=== PATIENT | female | born 1950 | race Caucasian/White ===

== ENCOUNTER 2020-02-24 16:47 | Observation (INO) | payer MEDICARE, SELFPAY ==
[2020-02-24] VITALS (9 sets, daily range): BP systolic 120–157; BP diastolic 75–97; PULSE 70–100; RESP 19–22; TEMP 36.7–37.2; O2SAT 92–98; BMI 25.0; BMI 24.8
--- NOTE | 2020-02-24 16:47 | ECG_ITS ---
APPROVED REPORT Exam: Resting ECG HR:100 bpm ECG Measurements Heart Rate 100 AXES WI 166 P 80 QRSd 140 QRS 263 QT 358 T 34 QTc 461 <Conclusion> Normal sinus rhythm Right bundle branch block Abnormal ECG Electronically signed by : Vinnie Chaidez, 02/25/2020 06:29:15
--- NOTE | 2020-02-24 17:13 | HMH.EDGENADL ---
ED Disposition Clinical Impression: Shortness of breath Chest pain Qualifiers: Chest pain type: precordial pain Qualified Code(s): R07.2 - Precordial pain Disposition: Admitted as Observation Condition on Discharge: Fair Referrals: Provider,Referral, [Primary Care Provider] - - Critical Care Critical Care Time: No Attestation: On , the high probability of a clinically significant, sudden or life threatening deterioration of the following system(s) required my full and direct attention, intervention and personal management. The time I documented below is in addition to time spent performing reported procedures but includes the following listed in this critical care notation. Medical Decision Making - Damián Inquiry Pt receiving controlled substance: No Vital Signs: 02/24/20 16:50 02/24/20 17:36 02/24/20 20:07 Temperature 99.0 F 98.2 F Temperature Source Oral Oral Pulse Rate 73 Pulse Rate [Right Radial] 100 H 83 Respiratory Rate 22 22 19 Blood Pressure 128/75 Blood Pressure [Right Arm] 157/89 H 146/82 H Blood Pressure Mean [Right Arm] 111 103 Blood Pressure Source Automatic Cuff Blood Pressure Source [Right Arm] Automatic Cuff Blood Pressure Position Sitting Blood Pressure Position [Right Arm] Sitting 02 Sat by Pulse Oximetry 95 98 Oxygen Delivery Method Room Air Nasal Cannula Room Air Oxygen Flow Rate (LPM) 2 - Lab Data Lab Results 02/24/20 16:50: WBC 7.3, RBC 5.04, Hgb 14.8, Hct 44.6, MCV 88.5, MCH 29.3, MCHC 33.1, RDW 13.5, Plt Count 246, MPV 7.9, Neut % (Auto) 46.8, Lymph % (Auto) 43.4, [place] % (Auto) 8.1, Eos % (Auto) 1.1, Baso % (Auto) 0.6, Neut # (Auto) 3.4, Lymph # (Auto) 3.2, [place] # (Auto) 0.6, Eos # (Auto) 0.1, Baso # (Auto) 0.0 02/24/20 16:50: Sodium 139, Potassium 4.2, Chloride 103, Carbon Dioxide 27, Anion Gap 13.2, BUN 18 H, Creatinine 0.70, Estimated Creat Clear 61, Estimated GFR 83, Est GFR ( Amer) 100, Glucose 100, Calcium 9.9, Total Bilirubin 0.6, AST 33, ALT 23, Alkaline Phosphatase 89, Troponin I < 0.01, Total Protein 7.8, Albumin 4.7, Globulin 3.1, Albumin/Globulin Ratio 1.5 02/24/20 16:50: D-Dimer 133 02/24/20 16:50: Influenza Type A Ag Negative, Influenza Type B Ag Negative 02/24/20 16:50: Group A Strep Rapid Negative 02/24/20 16:50: Lactate 1.5 02/24/20 17:11: ABG pH 7.44, ABG pCO2 32.8 L, ABG pO2 63.8 L, ABG HCO3 21.8 L, ABG Total CO2 22.8 L, ABG O2 Saturation 93, ABG Base Excess -2.4 Result diagrams: 02/24/20 16:50 02/24/20 16:50 Orders (Tests/Meds): ED MEDICATIONS Discontinued Medications Generic Name Dose Route Start Last Admin Trade Name Freq PRN Reason Stop Dose Admin Iohexol 70 ml 02/24/20 19:31 02/24/20 19:31 Rad-Omnipaque 350 100ml Bottle IV 02/24/20 19:32 70 ml ONCE ONE Administration Sodium Chloride 10 ml 02/24/20 19:31 02/24/20 19:31 Rad-Saline Flush 10ml Syringe IV 02/24/20 19:32 10 ml ONCE ONE Administration Sodium Chloride 50 ml 02/24/20 19:31 02/24/20 19:31 Rad-Ns 50ml Vial IV 02/24/20 19:32 50 ml ONCE ONE Administration ORDERS Category Date Time Status CTA Chest [CT angio chest] Stat Cat Scan 02/24/20 18:54 Taken Troponin I Q3H Lab 02/24/20 20:30 Ordered Troponin I Q3H Lab 02/24/20 23:30 Ordered Blood Culture Stat Micro 02/24/20 16:50 Received Strep Screen Confirmation Stat Micro 02/24/20 16:50 Received - Radiology Data #1 Image(s): Chest Image Reviewed: Yes I reviewed the patient's radiology image Preliminary Findings: Normal/NAD - CT Data CT Scan: Chest (CTA) Time Received: 20:08 ([facility] fax) ED CT Reviewed: Yes: I have viewed the radiologist's interpretation Findings Narrative: No CT evidence of central pulmonary embolism No CT evidence of overt pulmonary infarction No CT evidence of discernible right ventricular strain Mild ectasia of the ascending thoracic aorta which measures up to 3.5 cm in maximum diameter, there is no evidence of aortic dissec
[2020-02-24 17:14] LABS: ABG Base Excess -2.4 mmol/L (-2.4-2.3); ABG HCO3 21.8 mmhg (22.0-26.0); ABG Oxygen Saturation 93 % (90-100); ABG PCO2 32.8 mmhg (35.0-45.0); ABG PH 7.44 mmol/L (7.35-7.45); ABG PO2 63.8 mmhg (80-100); ABG TCO2 22.8 mmhg (23-27)
--- NOTE | 2020-02-24 17:22 | XR_ITS ---
PROCEDURE: XR CHEST PORTABLE CLINICAL HISTORY: soa, cp COMPARISON: No exams were available for comparison FINDINGS: Borderline cardiomegaly without failure. The lungs are clear without infiltrates, suspicious nodules, or pleural effusions. No acute bony abnormalities. IMPRESSION: Borderline cardiomegaly otherwise negative Dictated by: Cristian Mcdowell MD 02/24/2020 18:45 Electronically signed by Cristian Mcdowell MD in [place] 02/24/2020 18:45
[2020-02-24 17:25] LABS: Basophils % 0.6 % (0.1-2.0); Chloride 103 mmol/L (98-107); Eosinophils # 0.1 K/mm3 (0.0-0.4); Eosinophils % 1.1 % (0.1-12.0); Hematocrit 44.6 % (37.0-47.0); Hemoglobin 14.8 g/dL (12.2-16.2); Lymphocytes # 3.2 K/mm3 (0.7-4.5); Lymphocytes % 43.4 % (10-50); Mean Corpuscular HGB Conc 33.1 g/dL (31.8-35.4); Mean Corpuscular Hemoglobin 29.3 pg (27.0-31.2); Mean Corpuscular Volume 88.5 fl (81-99); Mean Platelet Volume 7.9 fl (7.4-10.4); Monocytes # 0.6 K/mm3 (0.1-1.0); Monocytes % 8.1 % (1.7-9.3); Neutrophils # 3.4 K/mm3 (1.8-7.8); Neutrophils % 46.8 % (37.0-80.0); Platelet Count 246 K/mm3 (142-424); Red Blood Count 5.04 M/mm3 (4.20-5.40); Red Cell Distribution Width 13.5 % (11.5-17.5); White Blood Count 7.3 K/mm3 (4.8-10.8)
[2020-02-24 17:26] LABS: Potassium 4.2 mmoL/L (3.5-5.1); Sodium 139 mmol/L (136-145)
[2020-02-24 17:28] LABS: Alanine Aminotransferase 23 U/L (12-78); Alkaline Phosphatase 89 U/L (38-126); Aspartate Amino Transferase 33 U/L (14-36); Bilirubin,Total 0.6 mg/dl (0.2-1.3); Blood Urea Nitrogen 18 mg/dl (7-17); Creatinine Clearance Estimated 61 mL/min (50-200); Estimated Glomerular Filt Rate 83 ml/min (>60); GFR (African American) 100 ML/MIN (>60)
[2020-02-24 17:29] LABS: Albumin Level 4.7 g/dl (3.5-5.0); Albumin/Globulin Ratio 1.5 (1.1-1.8); Anion Gap 13.2 mEq/L (5-15); Calcium 9.9 mg/dl (8.4-10.2); Carbon Dioxide 27 mmol/L (22.0-30.0); Globulin 3.1 g/dL (1.3-3.2); Glucose 100 mg/dl (74-100); Total Protein,Serum 7.8 g/dl (6.3-8.2)
[2020-02-24 17:36] LABS: Strep Scrn Group A (Rapid) Negative (Negative)
[2020-02-24 17:42] LABS: Troponin I < 0.01 ng/ml (0.00-0.034)
[2020-02-24 17:59] LABS: Lactic Acid 1.5 mmol/L (0.7-2.1)
[2020-02-24 18:14] LABS: D-Dimer 133 ng/mL (0-400)
--- NOTE | 2020-02-24 18:54 | CT_ITS ---
PROCEDURE: CT ANGIO CHEST CLINCIAL INDICATION: cp, soa Chest pain, shortness of air, elevated D-dimer, fatigue COMPARISON: XR CHEST PORTABLE from 02/24/2020 TECHNIQUE: IV Contrast: 70ML OPTIRAY 350 Axial images obtained with sagittal and coronal reformats. All CT scans at the facility use one or more dose reduction, viz: automated exposure control, ma/kV adjustment per patient size (including targeted exams where dose is matched to indication, i.e. head), or iterative reconstruction technique. FINDINGS: HEART AND MEDIASTINAL STRUCTURES: No evidence of aortic aneurysm, dissection, or pulmonary embolus. There is mild ectasia of the ascending aorta measuring up to 3.5 cm LUNGS AND PLEURAL SPACES: There is mild biapical pleural thickening BONY STRUCTURES: No acute bony abnormalities apparent. UPPER ABDOMEN: 6 mm hypodensity right hepatic lobe nonspecific too small to categorize. Prior cholecystectomy. Small amount of gas is present in the esophagus which could be seen with reflux ADDITIONAL FINDINGS: No other significant abnormalities. IMPRESSION: No acute finding. No evidence of pulmonary embolus. Dictated by: Cristian Mcdowell MD 02/25/2020 06:51 Electronically signed by Cristian Mcdowell MD in [place] 02/25/2020 06:51
--- NOTE | 2020-02-24 18:55 | PC.NURSE ---
NOTIFIED RAD OF CT PE PROTOCOL
--- NOTE | 2020-02-24 20:25 | PC.NURSE ---
md spoke with patient re: second troponin. willing to have it drawn and wait on it.
--- NOTE | 2020-02-24 20:30 | PC.NURSE ---
paged doc center consultant for service
--- NOTE | 2020-02-24 20:32 | PC.NURSE ---
speaking to dr weiss who is fundraising consultant for service
--- NOTE | 2020-02-24 20:34 | PC.NURSE ---
md on phone with dr ureña (covering for dr weiss).
--- NOTE | 2020-02-24 20:42 | PC.NURSE ---
spoke with reagan for admission. Radamesson-Dm chest pain obs 214
--- NOTE | 2020-02-24 21:12 | PC.NURSE ---
ED Report given by Jaiden YoungRN @ 9799: ER via Ambulance at 1700. Pt c/o chest pain thru back and out to ear, got concerned when b/c soa, called ambulance. Pt sating ok, c/o soa with intermittent dry cough. Troponin #1 - negative Elites - OK Ddimes - negative ABG - ok nothing critical A&Ox4 from home, lives with puppy Alergies - Paroxeting, fluoxetine Full code C/p & soa work up with CTA chest Flu/stret - negative Lactate - normal blood cultures 120/85 98.2 70's Resp fine ASA - 324mg given Pt can come via w/c to floor - no oxygen required. Alerted staff pt is ready to come to med/surg.
--- NOTE | 2020-02-24 21:24 | PC.NURSE ---
med surg staff here to transport patient to the floor
--- NOTE | 2020-02-24 21:28 | PC.NURSE ---
pt arrived to floor via wheelchair from ED
[2020-02-24 22:09] LABS: Troponin I < 0.01 ng/ml (0.00-0.034)
[2020-02-25] VITALS: BP 157/84; PULSE 67; RESP 16; TEMP 36.7; O2SAT 95
[2020-02-25] LABS: Troponin I < 0.01 ng/ml (0.00-0.034)
[2020-02-25 04:00] VITALS: BP 153/80; PULSE 71; PULSE 80; RESP 16; TEMP 36.7; O2SAT 96
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
[2020-02-25 05:38] VITALS: BMI 25.1
--- NOTE | 2020-02-25 07:32 | HMH.PHAVTE ---
[facility] Pharmacy VTE Monitoring - Patient Demographics Admission date: 02/25/20 Report Date: 02/25/20 Time: 07:32 Allergies/Adverse Reactions: Patient Allergies fluoxetine [From Prozac] Allergy (Verified 02/24/20 17:18) paroxetine [From Paxil] Allergy (Verified 02/24/20 17:18) Height: 1.7 m Weight: 72.631 kg Patient Problems: Current Active Problems Chest pain (Acute) Shortness of breath (Acute) - VTE Risk Labs: VTE Related Lab Results Hgb 14.8 g/dL (12.2-16.2) 02/24/20 16:50 Hct 44.6 % (37.0-47.0) 02/24/20 16:50 Plt Count 246 K/mm3 (142-424) 02/24/20 16:50 BUN 18 mg/dl (7-17) H 02/24/20 16:50 Creatinine 0.70 mg/dl (0.52-1.04) 02/24/20 16:50 Estimated Creat Clear 61 mL/min (50-200) 02/24/20 16:50 Was VTE Risk Assessment Performed: Yes VTE Score: 2 VTE Risk Level: Very Low Risk Clinical Trial Participant: No - Prophylaxis VTE Prophylaxis Ordered?: Yes Types of VTE Prophylaxis: TEDS Knee High
--- NOTE | 2020-02-25 07:38 | HMH.PHAINT ---
clarified home medication list using list from [facility]
[2020-02-25 08:00] VITALS: BP 137/68; PULSE 100; PULSE 91; RESP 16; TEMP 36.9; O2SAT 95
--- NOTE | 2020-02-25 08:29 | HMH.HP ---
*Admission Date: 02/25/20 *Chief complaint: Chest pressure and shortness of air *History of present illness: 69-year-old white female with history of hypertension and hyperlipidemia who has had several episodes of chest pain and shortness of air in the past, and states that she is had 3 stress test that have I failed -which resulted in her undergoing left heart cath about 10 years ago that per her report was clean. She is felt well since that time but over the past 24 hours has had increasing shortness of air with chest pressure. She has moved from the [facility] to [place] to live with her daughter after she and her are and her daughter persuaded her to come to the emergency department last night. Given her age, symptom characteristics and risk factors she was admitted to the hospital for rule out [place]. [facility] History I have reviewed the patient's past medical history: Yes Medical History: Reports:: Hyperlipidemia, Hypertension Denies:: Cancer, Diabetes Mellitus Type 1, Diabetes Mellitus Type 2, MRSA *Have you ever received a pneumonia vaccine?: Yes *Have you received a flu vaccine this season?: Yes Other Medical History: Reports: Sinus Problems Other Surgeries: Yes: Appendectomy, Cholecystectomy, Hysterectomy-Total Amputation: No Fractures: Yes (Right arm fx years ago) - *Social History Educational Level: Attended High School Smoking Status: Never smoker Alcohol Intake: never *Occupational Status:: retired *Travel in the last 8 weeks: None Family Hx:: Cancer, Coronary Artery Disease, Diabetes, Heart Attack, Hyperlipidemia, Hypertension, Stroke, Tuberculosis, Substance abuse, Alcoholism Review of Systems - Review of Systems Review of systems:: pertinent systems reviewed and negative unless documented below Med Home Medications Medication Instructions Recorded Confirmed Type Aspirin 325mg Tab 325 mg PO HS 02/24/20 02/25/20 History LORazepam [Lorazepam 1mg Tablet] 1 mg PO BID 02/24/20 02/24/20 History Omeprazole [Omeprazole 20mg 20 mg PO HS 02/24/20 02/25/20 History Capsule] Simvastatin [Zocor] 40 mg PO HS 02/24/20 02/25/20 History Duloxetine HCl 60 mg PO HS 02/25/20 02/25/20 History Quetiapine Fumarate 100 mg PO HS 02/25/20 02/25/20 History lisinopriL [Lisinopril 10mg Tab] 10 mg PO HS 02/25/20 02/25/20 History Allergies Allergy/AdvReac Type Severity Reaction Status Date / Time fluoxetine [From Prozac] Allergy Verified 02/24/20 17:18 paroxetine [From Paxil] Allergy Verified 02/24/20 17:18 Exam Vital signs and Labs for Last 24 Hours: Temp Pulse Resp BP Pulse Ox 98.0 F 71 16 153/80 H 96 02/25/20 04:00 02/25/20 04:00 02/25/20 04:00 02/25/20 04:00 02/25/20 04:00 Laboratory Results - last 24 hr 02/24/20 16:50: WBC 7.3, RBC 5.04, Hgb 14.8, Hct 44.6, MCV 88.5, MCH 29.3, MCHC 33.1, RDW 13.5, Plt Count 246, MPV 7.9, Neut % (Auto) 46.8, Lymph % (Auto) 43.4, [place] % (Auto) 8.1, Eos % (Auto) 1.1, Baso % (Auto) 0.6, Neut # (Auto) 3.4, Lymph # (Auto) 3.2, [place] # (Auto) 0.6, Eos # (Auto) 0.1, Baso # (Auto) 0.0 02/24/20 16:50: Sodium 139, Potassium 4.2, Chloride 103, Carbon Dioxide 27, Anion Gap 13.2, BUN 18 H, Creatinine 0.70, Estimated Creat Clear 61, Estimated GFR 83, Est GFR ( Amer) 100, Glucose 100, Calcium 9.9, Total Bilirubin 0.6, AST 33, ALT 23, Alkaline Phosphatase 89, Troponin I < 0.01, Total Protein 7.8, Albumin 4.7, Globulin 3.1, Albumin/Globulin Ratio 1.5 02/24/20 16:50: D-Dimer 133 02/24/20 16:50: Influenza Type A Ag Negative, Influenza Type B Ag Negative 02/24/20 16:50: Group A Strep Rapid Negative 02/24/20 16:50: Lactate 1.5 02/24/20 17:11: ABG pH 7.44, ABG pCO2 32.8 L, ABG pO2 63.8 L, ABG HCO3 21.8 L, ABG Total CO2 22.8 L, ABG O2 Saturation 93, ABG Base Excess -2.4 02/24/20 20:46: Troponin I < 0.01 02/24/20 23:25: Troponin I < 0.01 I & O for Last 24 hours: Intake & Output 02/22/20 02/23/20 02/24/20 02/25/20 11:59 11:59 11:59 11:59 Intake
--- NOTE | 2020-02-25 08:45 | HMH.CNCARD ---
History of Present Illness Consult date: 02/25/20 Requesting physician: Vinnie Chaidez Consult reason: chest pain, shortness of breath Chief complaint: sob Additional Medical History:: 1. htn 2. hld History of present illness: This is a 69-year-old white female who was admitted to the hospital with chest pain. She states for the last 3 days she had not felt well but woke up yesterday morning with shortness of breath. She states that her shortness of breath was pretty severe. She states that this was associated with a fullness in her chest especially in the right aspect. She states this radiated through to her back. She states that the chest fullness and shortness of breath did get severe and persisted all day long until she came to the hospital yesterday evening and was put on oxygen. She states once she had the oxygen in place her symptoms did improve. She denies any nausea. She did have some diaphoresis in her hands. The patient states nothing made her symptoms worse and nothing at home was helping make the symptoms better and that is why she decided to come into the hospital. She has recently moved here from [facility]. The patient reports that she has had 3 stress test in the past and she did have a cardiac catheterization approximately 10 years ago which was normal. She states that her most recent stress test was normal but she does not remember when that was. She denies any fever, chills, nausea, vomiting, diarrhea, PND, orthopnea or cough. [facility] History I have reviewed the patient's past medical history: Yes Medical History: Reports:: Hyperlipidemia, Hypertension Denies:: Cancer, Diabetes Mellitus Type 1, Diabetes Mellitus Type 2, MRSA *Have you ever received a pneumonia vaccine?: Yes *Have you received a flu vaccine this season?: Yes Other Medical History: Reports: Sinus Problems Other Surgeries: Yes: Appendectomy, Cholecystectomy, Hysterectomy-Total Amputation: No Fractures: Yes (Right arm fx years ago) - *Social History Educational Level: Attended High School Smoking Status: Never smoker Alcohol Intake: never *Occupational Status:: retired *Travel in the last 8 weeks: None Family Hx:: Cancer, Coronary Artery Disease, Diabetes, Heart Attack, Hyperlipidemia, Hypertension, Stroke, Tuberculosis, Substance abuse, Alcoholism Meds Home Medications Medication Instructions Recorded Confirmed Type Aspirin 325mg Tab 325 mg PO HS 02/24/20 02/25/20 History LORazepam [Lorazepam 1mg Tablet] 1 mg PO BID 02/24/20 02/24/20 History Omeprazole [Omeprazole 20mg 20 mg PO HS 02/24/20 02/25/20 History Capsule] Simvastatin [Zocor] 40 mg PO HS 02/24/20 02/25/20 History Duloxetine HCl 60 mg PO HS 02/25/20 02/25/20 History Quetiapine Fumarate 100 mg PO HS 02/25/20 02/25/20 History lisinopriL [Lisinopril 10mg Tab] 10 mg PO HS 02/25/20 02/25/20 History Allergies Allergy/AdvReac Type Severity Reaction Status Date / Time fluoxetine [From Prozac] Allergy Verified 02/24/20 17:18 paroxetine [From Paxil] Allergy Verified 02/24/20 17:18 Review of Systems - Review of Systems Review of systems:: pertinent systems reviewed and negative unless documented below - *Cardiovascular Reports chest pain, Reports chest pain at rest, Reports chest pain with activity, Reports excessive sweating, Reports shortness of breath, Reports shortness of breath with activity - *Respiratory Reports shortness of breath, Reports shortness of breath with activity Exam Vital signs and Labs for Last 24 Hours: Temp Pulse Resp BP Pulse Ox 98.4 F 91 H 16 137/68 95 02/25/20 08:00 02/25/20 08:00 02/25/20 08:00 02/25/20 08:00 02/25/20 08:00 Laboratory Results - last 24 hr 02/24/20 16:50: WBC 7.3, RBC 5.04, Hgb 14.8, Hct 44.6, MCV 88.5, MCH 29.3, MCHC 33.1, RDW 13.5, Plt Count 246, MPV 7.9, Neut % (Auto) 46.8, Lymph % (Auto) 43.4, [place] % (Auto) 8.1, Eos % (Auto) 1.1, Baso % (Auto) 0.6, Neut # (Auto) 3.4, Lymph # (Auto) 3.2,
--- NOTE | 2020-02-25 08:46 | NM_ITS ---
APPROVED REPORT Exam: Nuclear Stress Test Indication: hypertension, hyperlipidemia, fm. hx., c.p., matti, torie Patient Location: Inpatient Stress Tech: Lianet Giles [place] Tech:Nicole Bourgeois, ARRT, RT (R)(N) Ht: 5 ft 7 in Wt: 160 lbs Bra Size: 36c HR: 81 bpm BP: 124/81 mmHg BSA: 1.84 m2 BMI: 25.0 History: hypertension, hyperlipidemia, fm. hx., c.p., matti, torie Procedure: Patient received a 0.4 mg of intravenous Lexiscan, resting heart rate 81 bpm, resting blood pressure 124/81 mmHg, with Lexiscan maximum heart rate achived was 125 bpm which is Less than 85 % of the maximum predicted heart rate and blood pressure was 131/68 mmHg. Electrocardiogram Resting electrocardiogram showed sinus rhythm right bundle branch block, nonspecific ST-T changes, with Lexiscan there is less than 1.[address] segment depression noted from the baseline EKG. The EKG portion of the Lexiscan Myoview is nondiagnostic. Cardiac Stress and Resting SPECT Images: Cardiac Stress and Resting SPECT images were obtained using technetium 99m Myoview 31.8 mCi stress and 10.74 mCi at rest. Gated SPECT for the analysis of segmental wall motion and calculation of the ejection fraction also done. Cardiac stress and resting SPECT images show a mild fixed defect in the anterior wall with normal contractility gated SPECT is likely secondary to soft tissue attenuation, no reversible ischemia seen. Computer derived ejection fraction is over 65% with no regional wall motion abnormality, right ventricle is mildly enlarged with normal contractility. Conclusion: 1. The EKG portion of the Lexiscan Myoview is nondiagnostic. 2. No scintigraphic evidence of reversible ischemia seen, computer derived ejection fraction is over 65% with no regional wall motion abnormality, right ventricle is mildly enlarged with normal contractility. 3. Likely normal Lexiscan Myoview study. Electronically signed by : Evgeny Cancino, 02/25/2020 15:03:49
--- NOTE | 2020-02-25 08:46 | CA_ITS ---
APPROVED REPORT Exam: Pharmacologic Technologist: Dana Wilson, Ht: 67 ft 0 in Wt: 160 lbs BSA: 11.15 m2 HR: 81 bpm BP: 124/81 mmHg Rhythm: SINUS RHYTHM/LBBB Medical History Medical History: HTN, Hyperlipidemia Medications: Lisinopril,,,,, Omeprazole,,,,, Simvastatin,,,,, Asa,,,,, Asa,,,,, DulOXETINE,,,,, LorEZEPAM,,,,, Quetiapine,,,,, Cardiac Risk Factors: HTN, Hyperlipidemia, FHX of CAD Stress Test Details Test: LEXISCAN HR Resting HR: 93 bpm Max Heart Rate (APMHR): 151 bpm Max HR Achieved: 126 bpm Target HR (85% APMHR): 128 bpm % of APMHR: 83 Recovery HR: 108 bpm BP Resting BP: 124/81 mmHg Max BP: 143/72 mmHg Recovery BP: 143.0/72.0 mmHg ECG Resting ECG: SINUS RHYTHM/LBBB Clinical Exercise duration: 04:07 min Highest Stage Achieved: Exercise capacity: 1.0 METs Stress ECG Conclusion LEXISCAN PROTOCOL COMPLETED. PATIENT C/O HEADACHE DURING INFUSION. NO CHEST PAIN. NO SOA. POSITIVE FOR HEADACHE DURING INFUSION. RESOLVED IN RECOVERY. NO ECTOPY NOTED. GREATER THAN 1.[address] DEPRESSION. IMAGES TO FOLLOW. Test Summary REST . . . . . . . Sitting REST 07:28 . . 93 . 124/ 81 . . Stage 1 01:00 . . 118 . . . . Stage 2 01:00 . . 125 . 131/ 68 . . Stage 3 01:00 . . 120 . 130/ 77 . . Stage 4 01:00 . . 112 . 133/ 80 . . Stage 4 01:07 . . 111 . 126/ 76 . Stop exercise at 04:07 RECOVERY 01:00 . . 106 . . . . RECOVERY 02:00 . . 103 . 143/ 72 . . RECOVERY 03:00 . . 104 . 141/ 70 . . RECOVERY 04:00 . . 102 . 127/ 74 . . RECOVERY 04:16 . . 101 . 127/ 74 . . Electronically signed by : Evgeny Cancino, 02/25/2020 14:59:17
--- NOTE | 2020-02-25 08:51 | CA_ITS ---
APPROVED REPORT EXAM: Comprehensive 2D, Doppler, and color-flow Echocardiogram Accounting Office Manager: Jody Siddiqui CRT Ht: 5 ft 6 in Wt: 160lbs BSA: 1.82 BP: 137/68 mmHg Indications: Chest Pain, Shortness of Breath, Hyperlipidemia, Hypertension/HDD, abn ekg M-Mode Dimensions RVDd 2.66 cm (0.9-2.6) LVDd 4.13 cm (3.5-5.7) LVDs 3.04 cm (3.5-5.7) IVSd 1.79 cm (0.6-1.1) PWd 1.16 cm (0.6-1.1) EF (Teich) 52.10% FS 26.40% EDV (Teich) 75.50 mL ESV (Teich) 36.20 mL LV Diastology E/A Ratio 0.40 Mitral Valve MV A Velocity 92.00 (40-130 cm/s) Left Ventricle Left atrium is mildly enlarged, left ventricle is normal size, mild concentric left ventricular hypertrophy, visually estimated ejection fraction 55% with no regional wall motion abnormality, grade 1 diastolic dysfunction seen without tissue Doppler evidence of raise left atrial pressure. Right Ventricle Right atrium right ventricular normal size and contractility. Aortic Valve Aortic valve is minimally thickened and fibrosed, there is no aortic stenosis or aortic insufficiency. Mitral Valve Mitral valve is grossly normal, there is mild mitral regurgitation. Tricuspid Valve Tricuspid valve is grossly normal, there is mild tricuspid regurgitation. Pulmonic Valve Pulmonic valve is poorly visualized. Great Vessels Aortic root is normal size. Pericardium No significant pericardial effusion noted. Conclusion 1. Mildly enlarged left atrium, normal left ventricular size, mild concentric left ventricular hypertrophy, visually estimated ejection fraction 55% with no regional wall motion abnormality, grade 1 diastolic dysfunction seen without tissue Doppler evidence of raise left atrial pressure. 2. Mild mitral and tricuspid regurgitation. 3. No significant pericardial effusion noted. Electronically signed by : Evgeny Cancino, 02/25/2020 15:07:26
--- NOTE | 2020-02-25 10:15 | PC.NURSE ---
PATIENT WENT DOWN FOR ECHO AT 0915. FROM ECHO PATIENT WILL HAVE STRESS TEST DONE.
[2020-02-25 12:07] VITALS: PULSE 80
--- NOTE | 2020-02-25 12:17 | PC.NURSE ---
patient back to floor at this time
[2020-02-25 12:44] VITALS: BP 129/76; PULSE 86; RESP 16; TEMP 36.7; O2SAT 94
[2020-02-25 13:18] LABS: Chol/HDL Ratio 4.6 (1-3.5); Cholesterol 180 mg/dl (140-200); HDL Cholesterol 39 mg/dl (40-60); Triglycerides 326 mg/dl (30-150); VLDL Cholesterol 65 mg/dL (0-40)
[2020-02-25 13:29] LABS: Direct LDL Cholesterol 103.37 mg/dL (100-129)
[2020-02-25 16:00] VITALS: BP 128/82; PULSE 80; PULSE 85; RESP 16; TEMP 36.7; O2SAT 96
--- NOTE | 2020-02-25 16:02 | HMH.DCSUM ---
General - General Admission date:: 02/24/20 Discharge date: 02/25/20 HPI HPI: 69-year-old white female with history of hypertension and hyperlipidemia who has had several episodes of chest pain and shortness of air in the past, and states that she is had 3 stress test that have I failed -which resulted in her undergoing left heart cath about 10 years ago that per her report was clean. She is felt well since that time but over the past 24 hours has had increasing shortness of air with chest pressure. She has moved from the [facility] to [place] to live with her daughter after she and her are and her daughter persuaded her to come to the emergency department last night. Given her age, symptom characteristics and risk factors she was admitted to the hospital for rule out HI. Hospital Course Hospital Course: Patient was admitted, ruled out for HI, no further chest pain, echocardiogram and Myoview stress testing were unremarkable. On further discussion she has had a little bit of heartburn and we will treat her with omeprazole on discharge. She will be discharged home. I will follow her up in my office as a new patient. Objective Vital signs: Temp Pulse Resp BP Pulse Ox 98.0 F 86 16 129/76 94 L 02/25/20 12:44 02/25/20 12:44 02/25/20 12:44 02/25/20 12:44 02/25/20 12:44 no acute distress - *Routine HEENT Exam Head: Present: normocephalic Eye: Present: EOMI, PERRL ENT: Present: mucous membranes moist - *Routine Neck Exam Present: supple - *Routine Respiratory Exam Present: CTA bilaterally - *Routine Cardiovascular Exam Present: RRR - *Routine Abdominal Exam Present: soft, normoactive bowel sounds. Absent: tenderness - *Routine Extremities Exam Absent: cyanosis, clubbing, edema - *Routine Skin Exam Present: warm. Absent: rash - Detailed Eye Exam Eyelids: Bilateral normal inspection Results Labs on day of discharge: Labs from last 24 hours 02/25/20 02/24/20 02/24/20 12:40 23:25 20:46 WBC RBC Hgb Hct MCV MCH MCHC RDW Plt Count MPV Neut % (Auto) Lymph % (Auto) [place] % (Auto) Eos % (Auto) Baso % (Auto) Neut # (Auto) Lymph # (Auto) [place] # (Auto) Eos # (Auto) Baso # (Auto) D-Dimer ABG pH ABG pCO2 ABG pO2 ABG HCO3 ABG Total CO2 ABG O2 Saturation ABG Base Excess Sodium Potassium Chloride Carbon Dioxide Anion Gap BUN Creatinine Estimated Creat Clear Estimated GFR Est GFR ( Amer) Glucose Lactate Calcium Total Bilirubin AST ALT Alkaline Phosphatase Troponin I < 0.01 < 0.01 Total Protein Albumin Globulin Albumin/Globulin Ratio Triglycerides 326 H Cholesterol 180 LDL Cholesterol Direct 103.37 VLDL Cholesterol 65 H HDL Cholesterol 39 L Cholesterol/HDL Ratio 4.6 H Influenza Type A Ag Influenza Type B Ag Group A Strep Rapid 02/24/20 02/24/20 02/24/20 17:11 16:50 16:50 WBC RBC Hgb Hct MCV MCH MCHC RDW Plt Count MPV Neut % (Auto) Lymph % (Auto) [place] % (Auto) Eos % (Auto) Baso % (Auto) Neut # (Auto) Lymph # (Auto) [place] # (Auto) Eos # (Auto) Baso # (Auto) D-Dimer ABG pH 7.44 ABG pCO2 32.8 L ABG pO2 63.8 L ABG HCO3 21.8 L ABG Total CO2 22.8 L ABG O2 Saturation 93 ABG Base Excess -2.4 Sodium Potassium Chloride Carbon Dioxide Anion Gap BUN Creatinine Estimated Creat Clear Estimated GFR Est GFR ( Amer) Glucose Lactate 1.5 Calcium Total Bilirubin AST ALT Alkaline Phosphatase Troponin I Total Protein Albumin Globulin Albumin/Globulin Ratio Triglycerides Cholesterol LDL Cholesterol Direct VLDL Cholesterol HDL Cholesterol Cholesterol/H
--- NOTE | 2020-02-25 16:10 | HMH.PHAINT ---
DISCHARGE COUNSELING COMPLETE. SPOKE WITH PATIENT ABOUT DISCHARGE MEDICATIONS AND THAT NOTHING WAS CHANGED. LET PATIENT KNOW ABOUT THE SCRIPT FOR OMEPRAZOLE SENT TO [facility]. PATIENT ENDORSED NO QUESTIONS AT THIS TIME.
== END 2020-02-25 16:40 | disposition home or self-care (01) ==
LOC: ER 17:18 → 2ND 20:45
PROVIDERS: Nurse Practitioner Family; Admitting Provider Internal Medicine Adolescent Medicine; Emergency Provider Emergency Medicine; Visit Provider Internal Medicine Adolescent Medicine
DX: R07.2 Precordial pain (principal); R06.02 Shortness of breath; E78.5 Hyperlipidemia, unspecified; I10 Essential (primary) hypertension; R94.31 Abnormal electrocardiogram [ECG] [EKG]; Z79.899 Other long term (current) drug therapy; Z88.8 Allergy status to other drugs, medicaments and biological substances; H92.01 Otalgia, right ear; Z82.49 Family history of ischemic heart disease and other diseases of the circulatory system; Z83.6 Family history of other diseases of the respiratory system; Z83.3 Family history of diabetes mellitus; Z82.3 Family history of stroke; Z83.438 Family history of other disorder of lipoprotein metabolism and other lipidemia; Z90.49 Acquired absence of other specified parts of digestive tract; Z90.710 Acquired absence of both cervix and uterus; Z80.9 Family history of malignant neoplasm, unspecified
CPT/HCPCS: 36415; 71045; 71275; 78452; 80053; 80061; 82803; 83605; 84484; 85025; 85378; 87040; 87275; 87276; 87430; 93005; 93017; 93306; 96374; 96375; 99285; A9502; G0378; J2785; Q9967

== ENCOUNTER → 2021-02-21 10:42 | Outpatient (CLI) | payer MEDICARE, SELFPAY ==
[2021-02-21 12:20] LABS: Coronavirus 19 IgG Antibody Negative (Negative); Coronavirus 19 IgM Antibody Negative (Negative)
== END ==
PROVIDERS: Visit Provider Ophthalmology
DX: Z01.812 Encounter for preprocedural laboratory examination (principal); Z11.52 Encounter for screening for COVID-19; H25.12 Age-related nuclear cataract, left eye
CPT/HCPCS: 36415; 86328

== ENCOUNTER 2021-02-22 07:19 | Day surgery (SDC) | payer MEDICARE, SELFPAY ==
[2021-02-15 14:22] VITALS: BMI 27.6
[2021-02-22 07:48] VITALS: BP 131/82; PULSE 85; RESP 18; TEMP 36.2; O2SAT 95
[2021-02-22 09:15] VITALS: BP 149/79; PULSE 74; RESP 16; O2SAT 98
[2021-02-22 09:20] VITALS: BP 143/82; PULSE 74; RESP 16; O2SAT 97
[2021-02-22 09:25] VITALS: BP 147/85; PULSE 73; RESP 16; O2SAT 99
[2021-02-22 09:28] VITALS: BP 148/85; PULSE 77; RESP 16; O2SAT 99
[2021-02-22 09:32] VITALS: BP 159/83; PULSE 80; RESP 20; TEMP 36.8; O2SAT 95
== END 2021-02-22 09:46 | disposition home or self-care (01) ==
PROVIDERS: PCP Family Medicine; Visit Provider Ophthalmology
DX: H26.9 Unspecified cataract (principal); F32.9 Major depressive disorder, single episode, unspecified; I10 Essential (primary) hypertension; E78.5 Hyperlipidemia, unspecified; H91.90 Unspecified hearing loss, unspecified ear; Z90.49 Acquired absence of other specified parts of digestive tract; Z90.710 Acquired absence of both cervix and uterus; Z79.899 Other long term (current) drug therapy; Z88.8 Allergy status to other drugs, medicaments and biological substances
CPT/HCPCS: 66984; V2632

== ENCOUNTER 2021-03-08 07:10 | Day surgery (SDC) | payer MEDICARE, SELFPAY ==
[2021-03-03 11:56] VITALS: BMI 27.3
[2021-03-08] VITALS (7 sets, daily range): BP systolic 128–137; BP diastolic 71–82; PULSE 80–95; RESP 16–18; TEMP 36.6; O2SAT 95–99
[2021-03-08 08:54] LABS: Coronavirus 19 IgG Antibody Negative (Negative); Coronavirus 19 IgM Antibody Negative (Negative)
== END 2021-03-08 09:33 | disposition home or self-care (01) ==
PROVIDERS: PCP Family Medicine; Visit Provider Ophthalmology
DX: H26.9 Unspecified cataract (principal); F32.9 Major depressive disorder, single episode, unspecified; I10 Essential (primary) hypertension; E78.5 Hyperlipidemia, unspecified; H91.90 Unspecified hearing loss, unspecified ear; Z86.73 Personal history of transient ischemic attack (TIA), and cerebral infarction without residual deficits
CPT/HCPCS: 66984; 86328; V2632

== ENCOUNTER → 2021-10-26 10:39 | Outpatient (CLI) | payer MEDICARE, SELFPAY | PROVIDERS: Visit Provider Nurse Practitioner | DX: Z20.822 Contact with and (suspected) exposure to COVID-19 (principal) | CPT/HCPCS: C9803; U0003; U0005 ==

== ENCOUNTER 2021-10-28 10:58 | Emergency (ER) | payer MEDICARE, SELFPAY ==
[2021-10-28 11:30] VITALS: BP 138/79; PULSE 90; RESP 20; TEMP 36.6; O2SAT 95; BMI 26.6
--- NOTE | 2021-10-28 12:03 | HMH.EDUTC ---
[facility] Disposition Clinical Impression: Acute bronchitis Qualifiers: Bronchitis organism: unspecified organism Qualified Code(s): J20.9 - Acute bronchitis, unspecified Sinusitis Qualifiers: Sinusitis location: unspecified location Chronicity: acute Recurrence: non-recurrent Qualified Code(s): J01.90 - Acute sinusitis, unspecified Disposition: Home, Self-Care Condition on Discharge: Good Instructions: DI for Sinusitis, DI for Acute Bronchitis Additional Instructions: Drink plenty of fluids. Take tylenol or ibuprofen for pain or fever. Take the medications as directed. Follow up with your regular doctor. GO TO THE ER FOR ANY WORSENING SYMPTOMS Prescriptions: Benzonatate [Benzonatate 100mg cap] 100 mg PO TIDP PRN #30 cap PRN Reason: Cough Transmission Status: Pending to [facility] guaiFENesin [Mucinex 600mg tablet] 1 - 2 tab PO BIDP PRN #30 tab PRN Reason: Congestion Transmission Status: Pending to [facility] predniSONE [Prednisone 20mg Tab] 20 mg PO BID 3 Days #6 tab Transmission Status: Pending to [facility] Azithromycin [Z-Donaldo 250mg Tab*] 250 mg PO UD DOSE PK #6 tab Transmission Status: Pending to [facility] Referrals: Gina Dyson MD [Primary Care Provider] - Time of Disposition: 12:36 Medical Decision Making - Medical Records Medical records reviewed: No: I reviewed the patient's medical records. - Damián Inquiry Pt receiving controlled substance: No Vital Signs: 10/28/21 11:30 Temperature 97.9 F Temperature Source Oral Pulse Rate [Right] 90 Respiratory Rate 20 Blood Pressure [Right Arm] 138/79 Blood Pressure Mean [Right Arm] 98 Blood Pressure Source [Right Arm] Automatic Cuff Blood Pressure Position [Right Arm] Sitting 02 Sat by Pulse Oximetry 95 Oxygen Delivery Method Room Air - Lab Data Lab results reviewed: Yes: I reviewed the patient's lab results. [facility] HPI - General Stated complaint: covid symptoms Time Seen by Provider: 10/28/21 12:03 - History of Present Illness Provider Complaint: She states that for the past 6 days she has had a cough, chest congestion and sinus congestion. She tested negative for covid-19 3 days ago here at this hospital. - Related Data Home Medications Medication Instructions Recorded Confirmed Aspirin 325mg Tab 325 mg PO HS 02/24/20 03/08/21 Simvastatin [Zocor 40mg] 40 mg PO HS 02/24/20 03/08/21 Duloxetine HCl 60 mg PO BID 02/25/20 03/08/21 Budesonide/Formoterol Fumarate 2 puffs IH BID 02/15/21 03/08/21 [Symbicort 160-4.5 Mcg Inhaler] lisinopriL [Lisinopril] 10 mg PO BID 02/22/21 03/08/21 Cholecalciferol (Vitamin D3) 2,000 unit PO DAILY 03/08/21 03/08/21 [Vitamin D3 1,000 Unit Cap] Multivitamin 1 each PO DAILY 03/08/21 03/08/21 Omeprazole [Omeprazole 20mg 20 mg PO BID 03/08/21 03/08/21 Capsule] clonazePAM [Clonazepam] 0.5 mg PO BID 03/08/21 03/08/21 Previous Rx's Medication Instructions Recorded Azithromycin [Z-Donaldo 250mg Tab*] 250 mg PO UD DOSE PK #6 tab 10/28/21 Benzonatate [Benzonatate 100mg 100 mg PO TIDP PRN #30 cap 10/28/21 cap] guaiFENesin [Mucinex 600mg tablet] 1 - 2 tab PO BIDP PRN #30 tab 10/28/21 predniSONE [Prednisone 20mg 20 mg PO BID 3 Days #6 tab 10/28/21 Tab] Allergies Allergy/AdvReac Type Severity Reaction Status Date / Time fluoxetine [From Prozac] Allergy Verified 03/08/21 08:00 paroxetine [From Paxil] Allergy Verified 03/08/21 08:00 [facility] History - Hepatitis A Screen Attestation statement:: This patient has been screened for Hepatitis A risk factors. I have reviewed the patient's past medical history: Yes Medical History: Reports:: Cancer, Hyperlipidemia, Hypertension Denies:: Diabetes Mellitus Type 1, Diabetes Mellitus Type 2, Internal Pacemaker, MRSA, Seizures Other Medical History: Reports: Sinus Problems Other Surgeries: Yes: Appendectomy, Cholecystectomy, Hysterectomy-Total. No: Jona
[2021-10-28 12:37] VITALS: BP 138/79; PULSE 90; RESP 20; TEMP 36.6; O2SAT 95
== END 2021-10-28 12:40 | disposition home or self-care (01) ==
PROVIDERS: Emergency Provider Nurse Practitioner Family; PCP Family Medicine
DX: J20.9 Acute bronchitis, unspecified (principal); J01.90 Acute sinusitis, unspecified; I10 Essential (primary) hypertension; E78.5 Hyperlipidemia, unspecified; Z79.899 Other long term (current) drug therapy
CPT/HCPCS: 99202; G0463

== ENCOUNTER → 2021-11-28 11:31 | Outpatient (CLI) | payer MEDICARE, SELFPAY | PROVIDERS: Visit Provider Nurse Practitioner | DX: Z20.822 Contact with and (suspected) exposure to COVID-19 (principal) | CPT/HCPCS: C9803; U0003; U0005 ==